=== PATIENT | female | born 1960 | race Caucasian/White ===

== ENCOUNTER 2016-07-21 16:53 | Emergency (ER) | payer MEDICARE, BC ==
[2016-07-21 17:59] VITALS: BP 170/77
--- OUTSIDE RECORDS SUMMARY | 2016-07-21 18:00 | XMS REPORT | Continuity of Care Document ---
:1960 Author Organization [facility] ([facility]) Address [address] [place] [address] Phone [phone] Care Team Providers Name Role Phone Provider, No-Primary Care Primary Care Provider Unavailable Source Comments This disclosure is being made pursuant to the Care Everywhere program, applicable federal and state laws, and may not contain all informaitonavailable regarding this patient.[facility] ([facility]) Active Allergies and Adverse Reactions Allergen Noted Date Severity Reactions Comments Penicillins Urticaria (Hives) Current Medications Not on file Active Problems Problem Noted Date Other specified general medical examination 10/13/2005 Social History Tobacco Use Types Packs/Day Years Used Date Never Assessed Last Filed Vital Signs Vital Sign Reading Time Taken Blood Pressure 134/75 10/26/2005 9:55 AM CDT Pulse 80 10/26/2005 9:55 AM CDT Temperature 36.1 C (96.98 F) 10/26/2005 9:55 AM CDT Respiratory Rate - - Height 1.685 m (5' 6.33") 11/03/2005 8:39 AM CDT Weight 68.797 kg (151 lb 10.7 oz) 11/03/2005 8:39 AM CDT Body Mass Index 24.23 11/03/2005 8:39 AM CDT Oxygen Saturation - - Plan of Care Health Maintenance Due Date Last Done Comments Hepatitis B Vaccine (1 of 3 - Primary Series) 1960 Tdap Vaccine 09/08/1971 MMR Vaccine 1978 Td Vaccine 1978 Cervical Cancer Screening 1990 Mammogram 2000 Colonoscopy 2010 Lipid Disorder Screening 10/26/2010 10/26/2005 Influenza Vaccine: Seasonal (#1) 09/22/2015 HCV Screening Completed 10/26/2005 Results from Last 3 Months Not on file
== END 2016-07-21 17:54 | disposition left against medical advice (07) ==
LOC: ER 16:53
DX: Z53.21 Procedure and treatment not carried out due to patient leaving prior to being seen by health care provider (principal)